=== PATIENT | male | born 1985 | race Caucasian/White ===

== ENCOUNTER 2018-12-09 15:01 | Emergency (ER) | payer SELFPAY ==
[~2018-12-09 15:01] MED LIST: ALB0.5; ALBU8.5H12 IH; AUG875 PO; AZI250 PO; CYCL10TA29 PO; DICY-42 PO; HYDR-653 PO; KET10 PO; LOR5 PO; MAGN296S36 PO; MIR PO; NO ROUTINE MEDS; No Rtn Meds; OMEP-114 PO; ONDA4TAB PO; PRE20 PO; PROM-110 PO; TRA50 PO; [UNRECOGNIZED DRUG - CODE] PO
[2018-12-09] MEDS ORDERED: AMOX-557 PO ×2 (15:11→18:30)
--- NOTE | 2018-12-09 15:17 | ER Report ---
History and Physical Time Seen By MD: 15:17 Hx. of Stated Complaint: face pain with nausea HPI/ROS CHIEF COMPLAINT: Left-sided facial pain HISTORY OF PRESENT ILLNESS: 33-year-old male patient presents to emergency room with complaint of left-sided facial pain. Patient states that he has been having this pain for the past month. He states that he initially started having pain in his teeth and was seen by a dentist who evaluated him and found nothing wrong with his teeth. He did put him on antibiotics for sinusitis. Patient states he had significant improvement of the symptoms which lasted approximately one week after he finishes antibiotics. After that he did have worsening facial pain. He states that the pain has gotten significantly worse over last few days. Patient denies having any fevers, chills, nausea, vomiting or diarrhea. Patient states that he's been so bad is not been able to eat or drink. REVIEW OF SYSTEMS: Respiratory: No cough, no dyspnea. Cardiovascular: No chest pain, no palpitations. Gastrointestinal: No vomiting, no abdominal pain. Musculoskeletal: No back pain. Allergies: Coded Allergies: No Known Drug Allergies (Verified , 12/09/18) Home Meds Active Scripts Prednisone (PREDNISONE) 20 Mg Tablet, 40 MG PO DAILY, #10 TAB Prov:[facility]AN [facility]MANE [facility] 12/09/18 Oxycodone Hcl/Acetaminophen (PERCOCET 5-325 MG TABLET) 1 Each Tablet, 1 EACH PO Q4-6H PRN for PAIN, #12 TAB Prov:RAJAN HICKMANE [facility] 12/09/18 Amoxicillin/Potassium Clav (AUGMENTIN XR 1,000-62.5 TAB) 1 Each Tab.er.12h, 2 TAB PO Q12H for 3 Days, #12 TAB Prov:RAJAN HICKMANE [facility] 12/09/18 Reported Medications Amoxicillin/Potassium Clav (AUGMENTIN XR 1,000-62.5 TAB) 1 Each Tab.er.12h, 2 TAB PO Q12H for 5 Days, TAB 12/09/18 Past Medical/Surgical History Patient has a past medical history of asthma, stomach pain, scoliosis, alcohol use. Patient denies any pertinent surgical history. Patient has a family medical history of diabetes. Reviewed Nurses Notes: Yes Hx Smoking: Yes Smoking Status: Current: Every Day Smoker, Current: Some Days Smoker, Light Tobacco Smoker Exposure to Second Hand Smoke?: Yes Hx Substance Use Disorder: No Hx Alcohol Use: Yes (OCC) Constitutional Vital Sign - Last 24 Hours 12/09/18 12/09/18 12/09/18 12/09/18 15:05 15:08 15:30 15:31 Temp 98.0 Pulse 68 65 Resp 14 B/P (MAP) 133/91 (105) 133/91 117/80 (92) Pulse Ox 94 94 O2 Delivery Room Air 12/09/18 12/09/18 12/09/18 12/09/18 16:00 16:01 16:30 16:31 Pulse 58 63 B/P (MAP) 117/74 (88) 128/95 (106) Pulse Ox 92 95 12/09/18 12/09/18 12/09/18 12/09/18 16:36 17:00 17:06 17:30 Pulse 67 64 B/P (MAP) 135/61 (85) 119/83 (95) Pulse Ox 92 91 12/09/18 12/09/18 12/09/18 12/09/18 17:36 18:00 18:06 18:11 Pulse 75 89 ??? B/P (MAP) 117/71 (86) Pulse Ox 96 91 95 12/09/18 18:30 B/P (MAP) 120/80 (93) Physical Exam General Appearance: The patient is alert, has no immediate need for airway protection and no current signs of toxicity. ENT: Tympanic membranes are pearly-patel, auditory canals are patent, mucous mucous membranes are moist. Patient did have significant amount of pain to the left maxillary sinus, also had pain up into the mandaeism. Respiratory: Chest is non tender, lungs are clear to auscultation. Cardiac: regular rate and rhythm Gastrointestinal: Abdomen is soft and non tender, no masses, bowel sounds normal. Musculoskeletal: Neck: Neck is supple and non tender. Extremities have full range of motion and are non tender. Skin: No rashes or lesions. DIFFERENTIAL DIAGNOSIS: After history and physical exam differential diagnosis w as considered for sinusitis, dental infection, temporal arteritis. Medical Decision Making Data Points Result Diagram: 12/09/18 1554 12/09/18 1554 Laboratory Hematology Test 12/09/18 15:54 Red Blood Count 5.09 M/uL (4.00-5.60) Mean Corpuscular Volume 94.5 fL (80.0-96.0) Mean Corpuscular Hemoglobin 31.3 pg (26.0-33.0) Mean Corpuscular Hemoglobin Concent 33.1 g/dL (32.0-36.0) Red Cell Distribution Width 13.0 % (11.5-14.5) Mean Platelet Volume 8.8 fL (7.2-11.1) Neutrophils (%) (Auto) 72.2 % (39.4-72.5) Lymphocytes (%) (Auto) 16.2 % (17.6-49.6) Monocytes (%) (Auto) 9.9 % (4.1-12.4) Eosinophils (%) (Auto) 0.9 % (0.4-6.7) Basophils (%) (Auto) 0.8 % (0.3-1.4) Nucleated RBC Relative Count (auto) 0.1 /100WBC Neutrophils # (Auto) 7.8 K/uL (2.0-7.4) Lymphocytes # (Auto) 1.7 K/uL (1.3-3.6) Monocytes # (Auto) 1.1 K/uL (0.3-1.0) Eosinophils # (Auto) 0.1 K/uL (0.0-0.5) Basophils # (Auto) 0.1 K/uL (0.0-0.1) Nucleated RBC Absolute Count (auto) 0.01 K/uL Sodium Level 140 mmol/L (137-145) Potassium Level 4.2 mmol/L (3.5-5.0) Chloride Level 108 mmol/L (98-107) Carbon Dioxide Level 22 mmol/L (22-30) Blood Urea Nitrogen 12 mg/dl (9-21) Creatinine 0.90 mg/dl (0.66-1.25) Glomerular Filtration Rate Calc > 60.0 Random Glucose 84 mg/dl (75-110) Calcium Level 8.8 mg/dl (8.4-10.2) Total Bilirubin 0.9 mg/dl (0.2-1.3) Aspartate Amino Transf (AST/SGOT) 15 U/L (0-35) Alanine Aminotransferase (ALT/SGPT) 21 U/L (0-56) Alkaline Phosphatase 85 U/L (0-126) C-Reactive Protein 0.8 mg/dl (<1.0) Total Protein 7.1 g/dl (6.3-8.2) Albumin 4.1 g/dl (3.5-5.0) Chemistry Test 12/09/18 15:54 White Blood Count 10.8 k/uL (4.5-11.0) Red Blood Count 5.09 M/uL (4.00-5.60) Hemoglobin 15.9 g/dL (14.0-18.0) Hematocrit 48.0 % (42.0-52.0) Mean Corpuscular Volume 94.5 fL (80.0-96.0) Mean Corpuscular Hemoglobin 31.3 pg (26.0-33.0) Mean Corpuscular Hemoglobin Concent 33.1 g/dL (32.0-36.0) Red Cell Distribution Width 13.0 % (11.5-14.5) Platelet Count 223 K/uL (150-450) Mean Platelet Volume 8.8 fL (7.2-11.1) Neutrophils (%) (Auto) 72.2 % (39.4-72.5) Lymphocytes (%) (Auto) 16.2 % (17.6-49.6) Monocytes (%) (Auto) 9.9 % (4.1-12.4) Eosinophils (%) (Auto) 0.9 % (0.4-6.7) Basophils (%) (Auto) 0.8 % (0.3-1.4) Nucleated RBC Relative Count (auto) 0.1 /100WBC Neutrophils # (Auto) 7.8 K/uL (2.0-7.4) Lymphocytes # (Auto) 1.7 K/uL (1.3-3.6) Monocytes # (Auto) 1.1 K/uL (0.3-1.0) Eosinophils # (Auto) 0.1 K/uL (0.0-0.5) Basophils # (Auto) 0.1 K/uL (0.0-0.1) Nucleated RBC Absolute Count (auto) 0.01 K/uL Glomerular Filtration Rate Calc > 60.0 Calcium Level 8.8 mg/dl (8.4-10.2) Total Bilirubin 0.9 mg/dl (0.2-1.3) Aspartate Amino Transf (AST/SGOT) 15 U/L (0-35) Alanine Aminotransferase (ALT/SGPT) 21 U/L (0-56) Alkaline Phosphatase 85 U/L (0-126) C-Reactive Protein 0.8 mg/dl (<1.0) Total Protein 7.1 g/dl (6.3-8.2) Albumin 4.1 g/dl (3.5-5.0) EKG/Imaging Imaging EXAMINATION: CT of the Paranasal Sinuses HISTORY: Left-sided facial pain for 3 days. COMPARISON: None. TECHNIQUE: Contiguous axial images were obtained through the paranasal sinuses without intravenous contrast administration. Coronal and sagittal reformatted images were obtained from the axial source data. One of the following dose optimization techniques was utilized in the performance of this exam: Automated exposure control; adjustment of the mA and/or kV according to the patient's size; or use of an iterative rec onstruction technique. Specific details can be referenced in the facility's radiology CT exam operational policy. FINDINGS: Maxillary sinuses: Prominent mucosal thickening in the left maxillary sinus which results in approximately 70% opacification of the left maxillary sinus. Trace mucosal thickening in the right maxillary sinus. Frontal sinuses: Trace mucosal thickening in the left frontal sinus. Ethmoid air cells: Trace mucosal thickening in the ethmoid air cells. Sphenoid sinuses: Negative. Ostiomeatal units: The left ethmoid infundibulum is opacified. The right maxillary sinus drainage pathway is patent. The sphenoethmoidal recesses and frontoethmoidal recesses are patent. Nasal septum / nasal cavity: Slight rightward bowing of the nasal septum. The cribriform recesses in the upper nasal cavity are partially opacified. Orbits: Negative. Visualized intracranial contents/soft tissues: Negative. TMJs: Negative. IMPRESSION: Paranasal sinus mucosal disease with the most prominent mucosal thickening in the left maxillary sinus. The left maxillary sinus drainage pathway is opacified. There are no air-fluid levels within the paranasal sinuses. Report Dictated By: Huber Serrano MD at 12/09/2018 5:11 PM Report E-Signed By: Huber Serrano MD at 12/09/2018 5:18 PM ED Course/Re-evaluation ED Course Patient was admitted to an exam room, history and physical were obtained. Differential diagnoses were considered. On examination lungs are clear, heart is regular, abdomen is soft nontender. Patient does have significant amount of tenderness over the left maxillary sinus as well as the left mandaeism. A CT scan of the sinuses was done, a CBC, CMP, CRP was done. Lab results were unremarkable, however the CT scan does show significant inflammation in the left maxillary sinus. I discussed the findings with the patient and his father. Patient did receive a dose of Toradol here in the emergency room for pain, that was ineffective. He also received a dose of morphine which seemed to help. That lasted approximately an hour at which time he received a second dose of morphine and the pain was too bad. Patient then received Zosyn 3 g, Solu-Medrol 125 mg. On reevaluation patient was still complaining of pain. He did receive 2 Percocet for persistent pain. I did discuss with patient that we will discharge him home. We'll have him continue his Augmentin. I would like him to take that for full 10 days and sent and 3 additional days of Augmentin. We will also have him take Percocet as needed for pain for a couple of days. And prednisone. Patient is to return to emergency room if condition worsens. He is return to his primary care provider in the next week. Patient verbalized understanding and agreement with plan. Decision to Disposition Date: Dec 09, 2018 Decision to Disposition Time: 18:31 Depart Departure Latest Vital Signs Vital Signs Date Time Temp Pulse Resp B/P (MAP) Pulse Ox O2 Delivery O2 Flow Rate FiO2 12/09/18 18:30 120/80 (93) 12/09/18 18:11 ??? 95 12/09/18 15:08 98.0 14 Room Air Impression: Primary Impression: Sinusitis Condition: Improved Disposition: HOME OR SELF-CARE New Scripts Prednisone (PREDNISONE) 20 Mg Tablet 40 MG PO DAILY, #10 TAB Prov: GABY HICKMAN 12/09/18 Oxycodone Hcl/Acetaminophen (PERCOCET 5-325 MG TABLET) 1 Each Tablet 1 EACH PO Q4-6H PRN for PAIN, #12 TAB Prov: GABY HICKMAN 12/09/18 Amoxicillin/Potassium Clav (AUGMENTIN XR 1,000-62.5 TAB) 1 Each Tab.er.12h 2 TAB PO Q12H for 3 Days, #12 TAB Prov: GABY HICKMAN 12/09/18 Patient Instructions: Sinusitis (ED) Additional Instructions: Increase fluid intake. Get plenty of rest. Follow up with your primary care provider in the next week. Return to the ER if condition worsens. Take the medication as directed. Problem Qualifiers Primary Impression: Sinusitis Sinusitis location: maxillary Chronicity: acute Recurrence: recurrent Qualified Codes: J01.01 - Acute recurrent maxillary sinusitis GABY IHCKMAN Dec 09, 2018 15:17
[2018-12-09 15:59] LABS: PLATELET COUNT, AUTOMATED 223 K/uL (150-450)
[2018-12-09] MEDS ORDERED: KETOROLAC 15 MG/ML VIAL IVP ONE (16:15)
[2018-12-09] MEDS ORDERED: ONDANSETRON 4 MG/2 ML VIAL IVP ONE (16:30)
[2018-12-09] MEDS ORDERED: NS(*) 0.9% 1000 ML BAG 1,000 ML IV ONE (16:30)
[2018-12-09] MEDS ORDERED: fentaNYL CITR 100 MCG/2 ML AMP IVP ONE (16:45)
--- NOTE | 2018-12-09 17:23 | RADIOLOGY IMAGING REPORT ---
FACILITY: [facility] PATIENT NAME: Rocco Knight : 1985 MR: [id number] V: [id number] EXAM DATE: ORDERING PHYSICIAN: GABY HICKMAN TECHNOLOGIST: Location: [facility] Patient: Rocco Knight : 1985 Visit/Account:[id number] Date of Sevice: 12/09/2018 EXAMINATION: CT of the Paranasal Sinuses HISTORY: Left-sided facial pain for 3 days. COMPARISON: None. TECHNIQUE: Contiguous axial images were obtained through the paranasal sinuses without intravenous c ontrast administration. Coronal and sagittal reformatted images were obtained from the axial source d sue. One of the following dose optimization techniques was utilized in the performance of this exam: Autom ated exposure control; adjustment of the mA and/or kV according to the patient's size; or use of an i terative reconstruction technique. Specific details can be referenced in the facility's radiology C T exam operational policy. FINDINGS: Maxillary sinuses: Prominent mucosal thickening in the left maxillary sinus which results in approxim ately 70% opacification of the left maxillary sinus. Trace mucosal thickening in the right maxillary sinus. Frontal sinuses: Trace mucosal thickening in the left frontal sinus. Ethmoid air cells: Trace mucosal thickening in the ethmoid air cells. Sphenoid sinuses: Negative. Ostiomeatal units: The left ethmoid infundibulum is opacified. The right maxillary sinus drainage pa thway is patent. The sphenoethmoidal recesses and frontoethmoidal recesses are patent. Nasal septum / nasal cavity: Slight rightward bowing of the nasal septum. The cribriform recesses in the upper nasal cavity are partially opacified. Orbits: Negative. Visualized intracranial contents/soft tissues: Negative. TMJs: Negative. IMPRESSION: Paranasal sinus mucosal disease with the most prominent mucosal thickening in the left maxillary sinu s. The left maxillary sinus drainage pathway is opacified. There are no air-fluid levels within the p aranasal sinuses. Report Dictated By: Huber Serrano MD at 12/09/2018 5:11 PM Report E-Signed By: Huber Serrano MD at 12/09/2018 5:18 PM WSN:[id number]
[2018-12-09] MEDS ORDERED: AMPICILLIN/SULBACT (*) 3 GM VL 3 GM in NS(*) 0.9% 100 ML BAG 100 ML IVPB ONE (17:35)
[2018-12-09] MEDS ORDERED: methylPREDNIS SUCC 125 MG/2ML IVP ONE (17:35)
[2018-12-09 18:30] VITALS: BP 120/80
[2018-12-09] MEDS ORDERED: OXYC-865 PO (18:30)
[2018-12-09] MEDS ORDERED: PRED20TA6 PO (18:30)
== END 2018-12-09 18:56 | disposition home or self-care (01) ==
LOC: ER 15:13
DX: J01.01 Acute recurrent maxillary sinusitis (principal)
CPT/HCPCS: 70486; 85025; 86140; 96361; 96365; 96375; 99284; J0295; J1885; J2405; J2930; J3010; J7030; J7050; 82040; 82247; 82310; 82374; 82435; 82565; 82947; 84075; 84132; 84155; 84295; 84450; 84460; 84520

== ENCOUNTER 2018-12-11 08:05 | Emergency (ER) | payer SELFPAY ==
[~2018-12-11 08:05] MED LIST changes: +AMOX-557 PO; +OXYC-865 PO; +PRED20TA6 PO
--- NOTE | 2018-12-11 08:08 | ER Report ---
History and Physical Time Seen By MD: 08:08 HPI/ROS CHIEF COMPLAINT: Left-sided facial swelling, sinus pressure, dental pain HISTORY OF PRESENT ILLNESS: Patient is a 33-year-old male here with complaints of persistent left-sided facial swelling, subjective fever, dental pain, sinus pressure. Patient was evaluated on the in the emergency department at which time a sinus CT scan was completed showing mucosal thickening of the left maxillary sinus. Patient was started on Augmentin, prednisone for treatment of sinusitis. Patient reports increased swelling prompting evaluation today. Patient is afebrile, hemodynamically stable at time of evaluation. He does report pain with chewing but denies odynophagia, difficulty clearing secretions, shortness of breath. Denies pain with eye movement, visual disturbances, postnasal drainage. REVIEW OF SYSTEMS: Constitutional: + subjective fever, no chills. Eyes: No discharge. ENT: No sore throat. Left upper molar dental pain Cardiovascular: No chest pain, no palpitations. Respiratory: No cough, no shortness of breath. Gastrointestinal: No abdominal pain, no vomiting. Genitourinary: No hematuria. Musculoskeletal: No back pain. Skin: No rashes. Neurological: + headache. Allergies: Coded Allergies: No Known Drug Allergies (Verified , 12/11/18) Home Meds Active Scripts Prednisone (PREDNISONE) 20 Mg Tablet, 40 MG PO DAILY, #10 TAB Prov:GABY HICKMAN 12/09/18 Oxycodone Hcl/Acetaminophen (PERCOCET 5-325 MG TABLET) 1 Each Tablet, 1 EACH PO Q4-6H PRN for PAIN, #12 TAB Prov:GABY HICKMAN 12/09/18 Amoxicillin/Potassium Clav (AUGMENTIN XR 1,000-62.5 TAB) 1 Each Tab.er.12h, 2 TAB PO Q12H for 3 Days, #12 TAB Prov:GABY HICKMAN 12/09/18 Discontinued Reported Medications Amoxicillin/Potassium Clav (AUGMENTIN XR 1,000-62.5 TAB) 1 Each Tab.er.12h, 2 TAB PO Q12H for 5 Days, TAB 12/09/18 Hx Smoking: Yes Smoking Status: Current: Every Day Smoker, Current: Some Days Smoker, Light Tobacco Smoker Exposure to Second Hand Smoke?: Yes Hx Substance Use Disorder: No Hx Alcohol Use: Yes (OCC) Constitutional Vital Sign - Last 24 Hours 12/11/18 12/11/18 12/11/18 12/11/18 08:05 08:09 08:10 08:20 Temp 98.1 Pulse ??? 66 63 Resp 14 B/P (MAP) 120/79 (93) 120/79 Pulse Ox 91 92 O2 Delivery Room Air 12/11/18 12/11/18 12/11/18 12/11/18 08:30 08:35 08:50 09:00 Pulse ??? 62 B/P (MAP) 119/70 (86) 106/74 (85) Pulse Ox 92 92 12/11/18 12/11/18 12/11/18 12/11/18 09:05 09:20 09:30 09:35 Pulse 61 50 49 B/P (MAP) 92/61 (71) Pulse Ox 93 95 96 12/11/18 12/11/18 09:50 10:00 Pulse 53 B/P (MAP) 91/69 (76) Pulse Ox 95 Physical Exam General Appearance: The patient is alert, has no immediate need for airway protection and no signs of toxicity. Moderate distress secondary to pain Eyes: Pupils equal and round no pallor or injection. EOMI, no nystagmus present, no cellulitic changes in the tommie-orbital region ENT, Mouth: Mucous membranes are moist. + Tenderness on palpation of left upper molars without fluctuance or gingival swelling or drainage Respiratory: There are no retractions, lungs are clear to auscultation. Cardiovascular: Regular rate and rhythm. Gastrointestinal: Abdomen is soft and non tender, no masses, bowel sounds normal. Neurological: No focal neurological findings or cranial nerve deficits Skin: Warm and dry, no rashes. Musculoskeletal: Neck is supple non tender. Extremities are nontender, nonswollen and have full range of motion. DIFFERENTIAL DIAGNOSIS: After history and physical exam differential diagnosis was considered for sinusitis, dental abscess, parotid gland infection Medical Decision Making ED Course/Re-evaluation ED Course Patient is a 33-year-old male here with complaints of left-sided facial pain, swelling in the setting of a recent diagnosis of sinusitis confirmed by CT imaging findings. Patient was placed on Augmentin the outpatient setting and prednisone without relief of symptoms. Patient has nontoxic in appearance, has no neurological deficits or pain with eye movement. Patient was given ceftriaxone for added antimicrobial coverage, Toradol, fentanyl, Decadron. Patient was advised to continue his Augmentin course and prednisone. Return precautions provided. Patient was hemodynamically stable at time of discharge. Close PCP follow-up recommended Decision to Disposition Date: Dec 11, 2018 Decision to Disposition Time: 10:30 Depart Departure Latest Vital Signs Vital Signs Date Time Temp Pulse Resp B/P (MAP) Pulse Ox O2 Delivery O2 Flow Rate FiO2 12/11/18 10:00 91/69 (76) 12/11/18 09:50 53 95 12/11/18 08:10 98.1 14 Room Air Impression: Primary Impression: Sinusitis Condition: Improved Disposition: HOME OR SELF-CARE Patient Instructions: Sinusitis (ED) Additional Instructions: Please continue taking her Augmentin prescription as prescribed. Please also continue to take your prednisone to help reduce inflammation and pain. Please return immediately if you develop high fevers, worsening pain, visual changes, pain with eye movement, difficulty breathing or swallowing. Please follow-up with your family doctor in the next 24-48 hours. CLARISSE JOHN DO Dec 11, 2018 08:08
[2018-12-11] MEDS ORDERED: fentaNYL CITR 100 MCG/2 ML AMP IVP ONE (08:35)
[2018-12-11] MEDS ORDERED: KETOROLAC 30 MG/ML VIAL IVP ONE (08:35)
[2018-12-11] MEDS ORDERED: DEXAMETHASONE SOD PHOS 10MG/ML IVP ONE (08:35)
[2018-12-11] MEDS ORDERED: cefTRIAXone 1 GM VIAL IVP ONE (08:35)
[2018-12-11 10:00] VITALS: BP 91/69
== END 2018-12-11 10:49 | disposition home or self-care (01) ==
LOC: ER 08:18
DX: J32.9 Chronic sinusitis, unspecified (principal)
CPT/HCPCS: 96374; 96375; 99284; J0696; J1100; J1885; J3010